=== PATIENT | male | born 1975 | race Caucasian/White ===

== ENCOUNTER 2019-08-08 08:32 | Emergency (ER) | payer SELFPAY ==
[~2019-08-08] VITALS: Ht 180.3 cm; Wt 70.3 kg
[2019-08-08] MEDS ORDERED: TETRACAINE HCL 0.5% OPTH SOLN 4 ML BTL OP ONE (08:45)
== END 2019-08-08 09:14 | disposition home or self-care (01) ==
LOC: ER 08:32
DX: H57.11 Ocular pain, right eye (principal); T15.01XA Foreign body in cornea, right eye, initial encounter; Y92.008 Other place in unspecified non-institutional (private) residence as the place of occurrence of the external cause
CPT/HCPCS: 99283